=== PATIENT | female | born 1940 | race Caucasian/White ===

== ENCOUNTER → 2017-02-24 | Outpatient (CLI) | payer MEDICARE ==
[~2017-02-24] MED LIST: AMLO2.5T PO; ATEN25TA PO; ATOR20TA9 PO; CALC500T26 PO; CHOL500015 PO; KRIL1CAP23 PO; MAGN100T PO; MULT1TAB60 PO; RAMI10CA PO; RANI300T PO
== END | disposition home or self-care (01) ==
LOC: CFH 11:30
PROVIDERS: ATTEND Physical Medicine & Rehabilitation
DX: M51.36 Other intervertebral disc degeneration, lumbar region (principal); M47.897 Other spondylosis, lumbosacral region; M47.896 Other spondylosis, lumbar region; M41.86 Other forms of scoliosis, lumbar region
CPT/HCPCS: 72110; 72220

== ENCOUNTER → 2017-12-09 | Outpatient (CLI) | payer MEDICARE ==
[~2017-12-09] MED LIST changes: -CALC500T26 PO; +CALC500T93 PO
== END | disposition home or self-care (01) ==
LOC: CFH 11:19
PROVIDERS: ATTEND Nurse Practitioner Family
DX: Z13.820 Encounter for screening for osteoporosis (principal); Z78.0 Asymptomatic menopausal state
CPT/HCPCS: 77080

== ENCOUNTER 2018-12-12 17:26 | Emergency (ER) | payer MEDICARE ==
[~2018-12-12] VITALS: Ht 170.2 cm; Wt 81.1 kg
[~2018-12-12 17:26] MED LIST changes: -AMLO2.5T PO; +AMLO2.5T5 PO; +ATOR20TA37 PO; -ATOR20TA9 PO; -RAMI10CA PO; +RAMI10CA59 PO
--- NOTE | 2018-12-12 17:56 | NUR ---
PT TO ROOM FROM LOBBY
--- NOTE | 2018-12-12 18:11 | NUR ---
PT PLACED ON ISOLATION PRECAUTIONS, MD AT BEDSIDE
[2018-12-12 18:27] LABS: BASOPHILS # (AUTO) 0.01 x10^3/uL (0-0.1); BASOPHILS % (AUTO) 0 % (0-1); EOSINOPHILS # (AUTO) 0.07 x10^3/uL (0-0.4); EOSINOPHILS % (AUTO) 1 % (1-7); LYMPHOCYTES # (AUTO) 1.56 x10^3/uL (1-3.4); LYMPHOCYTES % (AUTO) 16 % (22-44); MD NO; MEAN CORPUSCULAR HEMOGLOBIN 32.2 pg (27.0-34.8); MEAN CORPUSCULAR HGB CONC 34.1 g/dL (32.4-35.8); MEAN CORPUSCULAR VOLUME 94.3 fL (80-100); MEAN PLATELET VOLUME 9.4 fL (7.4-10.4); MONOCYTES # (AUTO) 0.74 x10^3/uL (0.2-0.8); MONOCYTES % (AUTO) 8 % (2-9); NEUTROPHILS # (AUTO) 7.23 x10^3/uL (1.8-6.8); NEUTROPHILS % (AUTO) 75 % (42-75); PLATELET COUNT 197 x10^3/uL (130-400); RED BLOOD COUNT 4.73 x10^6/uL (3.82-5.3); RED CELL DISTRIBUTION WIDTH 13.5 % (9.6-15.2)
--- NOTE | 2018-12-12 18:29 | NUR ---
PT DOES NOT THINK SHE CAN PROVIDE STOOL SAMPLE, STATES SHE HASN'T BEEN ABLE TO EAT AND HAS HAD DIARRHEA FOR 3 DAYS
[2018-12-12 18:36] LABS: ALANINE AMINOTRANSFERASE 36 U/L (12-78); ALBUMIN 3.4 g/dL (3.4-5.0); ANION GAP 5 mmol/L (5-15); CALCIUM 8.7 mg/dL (8.5-10.1); CHLORIDE 106 mmol/L (98-107); CREATININE 0.78 mg/dL (0.55-1.02)
[2018-12-12 18:39] LABS: ALKALINE PHOSPHATASE 108 U/L (45-117); BILIRUBIN,TOTAL 1.9 mg/dL (0.2-1.0); TOTAL PROTEIN 7.4 g/dL (6.4-8.2)
--- NOTE | 2018-12-12 19:11 | NUR ---
ASSUMED CARE OF PATIENT.
--- NOTE | 2018-12-12 19:20 | NUR ---
PT WENT TO CT
--- NOTE | 2018-12-12 19:46 | NUR ---
PT RESTING IN ROOM. NO ACUTE DISTRESS NOTED. PT IS NOT ABLE TO GIVE A STOOL SAMPLE AT THIS TIME. WILL CONTINUE TO MONITOR.
[2018-12-12] MEDS ORDERED: CIPROFLOXACIN 500 MG TABLET ONE (20:15)
[2018-12-12] MEDS ORDERED: metroNIDAZOLE 500 MG TABLET ONE (20:15)
[2018-12-12 20:18] VITALS: BP 154/75
--- NOTE | 2018-12-12 20:25 | NUR ---
DR BARRIOS HAS UPDATED PATIENT PATIENT DISCHARGED
[2018-12-12] MEDS ORDERED: CIPROFLOXACIN 500 MG TABLET PO ONE (20:30)
[2018-12-12] MEDS ORDERED: metroNIDAZOLE 500 MG TABLET PO ONE (20:30)
== END 2018-12-12 20:27 | disposition home or self-care (01) ==
LOC: ED 20:07
DX: R10.9 Unspecified abdominal pain (principal); I25.10 Atherosclerotic heart disease of native coronary artery without angina pectoris; I10 Essential (primary) hypertension; E78.5 Hyperlipidemia, unspecified; Z90.49 Acquired absence of other specified parts of digestive tract
CPT/HCPCS: 36415; 74177; 80053; 83690; 85025; 99284

== ENCOUNTER 2018-12-22 17:57 | Inpatient (IN) | payer MEDICARE ==
[~2018-12-22] VITALS: Ht 170.2 cm; Wt 89.2 kg
[~2018-12-22 17:57] MED LIST changes: +CIPR500T87 PO; +DIAZ5TAB PO; +ESTR42.53 TD; +METR500T PO
[2018-12-22 19:21] LABS: ALBUMIN 3.4 g/dL (3.4-5.0); ANION GAP 4 mmol/L (5-15); CALCIUM 8.7 mg/dL (8.5-10.1); CHLORIDE 105 mmol/L (98-107)
[2018-12-22 19:24] LABS: ALANINE AMINOTRANSFERASE 48 U/L (12-78); ALKALINE PHOSPHATASE 98 U/L (45-117); BASOPHILS # (AUTO) 0.03 x10^3/uL (0-0.1); BASOPHILS % (AUTO) 0 % (0-1); BILIRUBIN,TOTAL 1.7 mg/dL (0.2-1.0); CREATININE 0.84 mg/dL (0.55-1.02); EOSINOPHILS # (AUTO) 0.01 x10^3/uL (0-0.4); EOSINOPHILS % (AUTO) 0 % (1-7); LYMPHOCYTES % (AUTO) 14 % (22-44); MD NO; MEAN PLATELET VOLUME 9.1 fL (7.4-10.4); MONOCYTES # (AUTO) 0.78 x10^3/uL (0.2-0.8); MONOCYTES % (AUTO) 6 % (2-9); NEUTROPHILS # (AUTO) 11.28 x10^3/uL (1.8-6.8); NEUTROPHILS % (AUTO) 81 % (42-75); PLATELET COUNT 229 x10^3/uL (130-400); RED BLOOD COUNT 4.91 x10^6/uL (3.82-5.3); RED CELL DISTRIBUTION WIDTH 13.4 % (9.6-15.2); TOTAL PROTEIN 7.6 g/dL (6.4-8.2)
--- NOTE | 2018-12-22 20:17 | NUR ---
FROM LOBBY TO ROOM
--- NOTE | 2018-12-22 20:20 | NUR ---
SEND BY PCP W/ REPORTED POSSIBLE FECAL IMPACTION. +NAUSEA
--- NOTE | 2018-12-22 22:31 | NUR ---
IV WAS INSERTED CT ABDOME WILL BE DONE
[2018-12-22] MEDS ORDERED: OMNIPAQUE 350 MG/ML, 100ML BOTTLE ONE (22:40)
[2018-12-23] MEDS ORDERED: SODIUM CHLORIDE 0.9% 1,000ML IVBOLUS ONE
[2018-12-23] MEDS ORDERED: PIPERACILLIN/TAZO/PMX 4.5GM 100 ML IV ONE
[2018-12-23] MEDS ORDERED: DIPHENHYDRAMINE 50 MG/ML, 1ML ONE (00:11)
--- NOTE | 2018-12-23 00:19 | NUR ---
given iv abx with benadryl iv for itching all patients belongings were taken by home
[2018-12-23] MEDS ORDERED: DIPHENHYDRAMINE 50 MG/ML, 1ML IVPush ONE ×2 (00:30)
[2018-12-23] MEDS ORDERED: MIDAZOLAM 1 MG/ML, 2ML ONE (00:42)
[2018-12-23] MEDS ORDERED: FENTANYL PF 250 MCG/5ML ONE (00:42)
[2018-12-23] MEDS ORDERED: PROPOFOL 10 MG/ML, 20ML ONE (00:51)
[2018-12-23] MEDS ORDERED: DEXAMETHASONE 4 MG/ML, 1ML ONE (00:51)
[2018-12-23] MEDS ORDERED: SUCCINYLCHOLINE 20 MG/ML, 10ML ONE (00:51)
[2018-12-23] MEDS ORDERED: ONDANSETRON 2MG/ML, 2ML ONE (00:51)
[2018-12-23] MEDS ORDERED: ROCURONIUM 10 MG/ML,10ML ONE (00:51)
[2018-12-23] MEDS ORDERED: CEFOTETAN 2 GM ONE (00:51)
[2018-12-23] MEDS ORDERED: SUGAMMADEX 200 MG/2 ML IVPush ONE (01:39)
[2018-12-23] MEDS ORDERED: ALBUTEROL SULFATE 2.5 MG/3 ML NPPB PRN (02:00)
[2018-12-23] MEDS ORDERED: LABETALOL 5MG/ML, 20ML IV PRN (02:00)
[2018-12-23] MEDS ORDERED: METOCLOPRAMIDE 5 MG/ML, 2ML IV PRN (02:00)
[2018-12-23] MEDS ORDERED: KETOROLAC 30 MG/1 ML IV PRN ×2 (02:00→05:30)
[2018-12-23] MEDS ORDERED: PROMETHAZINE 25 MG/ML, 1ML IV PRN (02:00)
[2018-12-23] MEDS ORDERED: ONDANSETRON 2MG/ML, 2ML IVPush PRN ×2 (02:00→03:00)
[2018-12-23] MEDS ORDERED: OXYcodone 5 MG/5 ML ORAL.SOL UDC PO PRN (02:00)
[2018-12-23] MEDS ORDERED: MEPERIDINE/PF 25MG/0.5ML IVPush PRN (02:00)
[2018-12-23] MEDS ORDERED: hydrALAzine 20 MG/ML, 1ML IV PRN (02:00)
[2018-12-23] MEDS: FENTANYL PF 100 MCG/2ML IV PRN ×2 (02:10→02:23)
[2018-12-23] MEDS ORDERED: DIPHENHYDRAMINE 50 MG/ML, 1ML IVPush PRN (02:30)
[2018-12-23] MEDS: HYDROmorphone 1 MG/ML, 1ML AMP IV PRN ×2 (02:35→02:46)
[2018-12-23] MEDS: SODIUM CHLORIDE 0.9% 1,000 ML IV SCH ×4 (02:49→17:49)
[2018-12-23] MEDS ORDERED: ONDANSETRON ODT 4 MG PO PRN (03:00)
[2018-12-23] MEDS ORDERED: DIAZEPAM 5 MG TABLET PO PRN (03:00)
[2018-12-23] MEDS ORDERED: hydrALAzine 20 MG/ML, 1ML IVPush PRN (03:00)
[2018-12-23] MEDS ORDERED: PROMETHAZINE 25 MG/ML, 1ML IM PRN (03:00)
[2018-12-23] MEDS ORDERED: morphine SULFATE 10 MG/ML, 1ML IVPush PRN (03:00)
[2018-12-23] MEDS ORDERED: LABETALOL 5MG/ML, 20ML IVPush PRN (03:00)
[2018-12-23] MEDS ORDERED: OXYcodone/APAP 5/325MG TABLET PO PRN (03:00)
[2018-12-23 03:22] VITALS: BP 98/56
[2018-12-23 03:30] LABS: HEMOGLOBIN A1C 5.7 % (4.2-6.3)
[2018-12-23 03:32] LABS: FREE T4 (FREE THYROXINE) 1.43 ng/dL (0.76-1.46); THYROID STIMULATING HORMONE 0.57 mIU/L (0.358-3.740)
[2018-12-23] MEDS ORDERED: POTASSIUM CHLORIDE 20 MEQ in D5%-0.45% NACL 1,000 ML IV SCH (05:30)
[2018-12-23] MEDS ORDERED: morphine SULFATE 10 MG/ML, 1ML IV PRN (05:30)
[2018-12-23 05:32] LABS: BASOPHILS % (AUTO) 0 % (0-1); EOSINOPHILS # (AUTO) 0.01 x10^3/uL (0-0.4); EOSINOPHILS % (AUTO) 0 % (1-7); LYMPHOCYTES # (AUTO) 0.67 x10^3/uL (1-3.4); LYMPHOCYTES % (AUTO) 4 % (22-44); MD NO; MEAN CORPUSCULAR HEMOGLOBIN 31.4 pg (27.0-34.8); MEAN CORPUSCULAR HGB CONC 33.3 g/dL (32.4-35.8); MEAN CORPUSCULAR VOLUME 94.2 fL (80-100); MEAN PLATELET VOLUME 9.2 fL (7.4-10.4); MONOCYTES % (AUTO) 4 % (2-9); NEUTROPHILS # (AUTO) 14.64 x10^3/uL (1.8-6.8); NEUTROPHILS % (AUTO) 92 % (42-75); PLATELET COUNT 202 x10^3/uL (130-400); RED CELL DISTRIBUTION WIDTH 13.7 % (9.6-15.2)
[2018-12-23 05:36] LABS: CHLORIDE 104 mmol/L (98-107)
[2018-12-23 05:41] LABS: ALANINE AMINOTRANSFERASE 194 U/L (12-78); ALBUMIN 2.9 g/dL (3.4-5.0); ALKALINE PHOSPHATASE 135 U/L (45-117); ANION GAP 7 mmol/L (5-15); BILIRUBIN,TOTAL 2.2 mg/dL (0.2-1.0); CALCIUM 8.1 mg/dL (8.5-10.1); CHOL/HDL RATIO 1.8; CHOLESTEROL, TOTAL 101 mg/dL (140-239); CREATININE 1.04 mg/dL (0.55-1.02); HDL CHOL % 54 % (28-40); HDL CHOLESTEROL (DIRECT) 55 mg/dL (40-60); LDL CHOLESTEROL,CALCULATED 33 mg/dL (54-169); LDL/HDL RATIO 0.6 (0.5-3.0); TOTAL PROTEIN 6.4 g/dL (6.4-8.2); TRIGLYCERIDES 64 mg/dL (50-200); VLDL CHOLESTEROL 13 mg/dL (0-25)
[2018-12-23] MEDS: DIPHENHYDRAMINE 50 MG/ML, 1ML IVPush PRN ×2 (06:28→17:47)
[2018-12-23] MEDS: ERTAPENEM 1 GM in SODIUM CHLORIDE 0.9% 50 ML IV SCH (06:28)
[2018-12-23 06:48] VITALS: BP 90/57
[2018-12-23] MEDS: MULTIVITAMIN 1 TABLET PO SCH (08:25)
[2018-12-23] MEDS: HEPARIN 5,000 UNITS/ML, 1ML SQ SCH ×2 (08:26→16:37)
[2018-12-23] MEDS: AMLODIPINE 2.5 MG TABLET PO SCH (08:26)
[2018-12-23] MEDS: LACTOBACILLUS CHEW TABLET PO SCH ×3 (08:26→21:04)
[2018-12-23] MEDS ORDERED: FAMOTIDINE 20 MG/2 ML IVPush SCH (09:00)
[2018-12-23] MEDS ORDERED: MAGNESIUM OXIDE 400 MG TABLET PO SCH (09:00)
[2018-12-23] MEDS ORDERED: RAMIPRIL 10 MG CAPSULE PO SCH (09:00)
[2018-12-23 13:47] VITALS: BP 124/67
[2018-12-23 18:40] VITALS: BP 131/69
[2018-12-23] MEDS: ATORVASTATIN 20 MG TABLET PO SCH (21:04)
[2018-12-23] MEDS: RAMIPRIL 10 MG CAPSULE PO SCH (21:34)
[2018-12-24] MEDS: HEPARIN 5,000 UNITS/ML, 1ML SQ SCH ×3 (00:05→17:00)
[2018-12-24] MEDS: SODIUM CHLORIDE 0.9% 1,000 ML IV SCH ×3 (00:09→17:00)
[2018-12-24 05:54] LABS: ALBUMIN 2.4 g/dL (3.4-5.0); ANION GAP 6 mmol/L (5-15); CALCIUM 7.8 mg/dL (8.5-10.1); CHLORIDE 110 mmol/L (98-107)
[2018-12-24 05:59] LABS: ALANINE AMINOTRANSFERASE 238 U/L (12-78); ALKALINE PHOSPHATASE 135 U/L (45-117); BILIRUBIN,TOTAL 0.7 mg/dL (0.2-1.0); CREATININE 0.72 mg/dL (0.55-1.02); TOTAL PROTEIN 5.1 g/dL (6.4-8.2)
[2018-12-24] MEDS: ERTAPENEM 1 GM in SODIUM CHLORIDE 0.9% 50 ML IV SCH (06:22)
[2018-12-24 06:42] VITALS: BP 113/53
[2018-12-24] MEDS: AMLODIPINE 2.5 MG TABLET PO SCH (08:49)
[2018-12-24] MEDS: MULTIVITAMIN 1 TABLET PO SCH (08:49)
[2018-12-24] MEDS: LACTOBACILLUS CHEW TABLET PO SCH ×3 (08:49→20:46)
[2018-12-24 12:56] VITALS: BP 104/67
[2018-12-24 18:44] VITALS: BP 152/74
[2018-12-24] MEDS: ATORVASTATIN 20 MG TABLET PO SCH (20:45)
[2018-12-24] MEDS: RAMIPRIL 10 MG CAPSULE PO SCH (20:46)
[2018-12-24] MEDS ORDERED: RAMIPRIL 10 MG CAPSULE PO SCH (21:00)
[2018-12-25] MEDS: HEPARIN 5,000 UNITS/ML, 1ML SQ SCH ×3 (00:05→15:40)
[2018-12-25] MEDS: MUPIROCIN OINT 2%, 22GM TP SCH ×3 (00:05→17:31)
[2018-12-25 05:23] LABS: BASOPHILS # (AUTO) 0.02 x10^3/uL (0-0.1); BASOPHILS % (AUTO) 0 % (0-1); EOSINOPHILS # (AUTO) 0.23 x10^3/uL (0-0.4); EOSINOPHILS % (AUTO) 4 % (1-7); LYMPHOCYTES # (AUTO) 1.93 x10^3/uL (1-3.4); LYMPHOCYTES % (AUTO) 35 % (22-44); MD NO; MEAN CORPUSCULAR HEMOGLOBIN 31.8 pg (27.0-34.8); MEAN CORPUSCULAR HGB CONC 33.4 g/dL (32.4-35.8); MEAN CORPUSCULAR VOLUME 95.1 fL (80-100); MEAN PLATELET VOLUME 9.8 fL (7.4-10.4); MONOCYTES # (AUTO) 0.38 x10^3/uL (0.2-0.8); MONOCYTES % (AUTO) 7 % (2-9); NEUTROPHILS # (AUTO) 2.97 x10^3/uL (1.8-6.8); NEUTROPHILS % (AUTO) 54 % (42-75); PLATELET COUNT 138 x10^3/uL (130-400); RED BLOOD COUNT 3.69 x10^6/uL (3.82-5.3); RED CELL DISTRIBUTION WIDTH 13.6 % (9.6-15.2)
[2018-12-25 05:30] LABS: CHLORIDE 111 mmol/L (98-107)
[2018-12-25 05:39] LABS: ALANINE AMINOTRANSFERASE 155 U/L (12-78); ALBUMIN 2.3 g/dL (3.4-5.0); ALKALINE PHOSPHATASE 117 U/L (45-117); ANION GAP 5 mmol/L (5-15); BILIRUBIN,TOTAL 0.5 mg/dL (0.2-1.0); CALCIUM 7.6 mg/dL (8.5-10.1); CREATININE 0.49 mg/dL (0.55-1.02); TOTAL PROTEIN 5.3 g/dL (6.4-8.2)
[2018-12-25] MEDS: ERTAPENEM 1 GM in SODIUM CHLORIDE 0.9% 50 ML IV SCH (06:50)
[2018-12-25] MEDS: AMLODIPINE 2.5 MG TABLET PO SCH (08:15)
[2018-12-25] MEDS: MULTIVITAMIN 1 TABLET PO SCH (08:15)
[2018-12-25] MEDS: LACTOBACILLUS CHEW TABLET PO SCH ×3 (08:15→20:15)
[2018-12-25 08:20] VITALS: BP 147/82
[2018-12-25] MEDS: SODIUM CHLORIDE 0.9% 1,000 ML IV SCH (10:36)
[2018-12-25 15:26] VITALS: BP 145/83
[2018-12-25 18:50] VITALS: BP 149/85
[2018-12-25 20:13] VITALS: BP 128/68
[2018-12-25] MEDS: ATORVASTATIN 20 MG TABLET PO SCH (20:15)
[2018-12-25] MEDS: RAMIPRIL 10 MG CAPSULE PO SCH (20:15)
[2018-12-26] MEDS: HEPARIN 5,000 UNITS/ML, 1ML SQ SCH ×3 (00:54→15:47)
[2018-12-26] MEDS ORDERED: OMNIPAQUE 350 MG/ML, 100ML BOTTLE ONE (02:27)
[2018-12-26] MEDS: SODIUM CHLORIDE 0.9% 1,000 ML IV SCH (03:05)
[2018-12-26 05:12] LABS: HCT (SEDRATE) 36.5 % (34.6-47.8)
[2018-12-26 05:20] LABS: ALBUMIN 2.6 g/dL (3.4-5.0); ANION GAP 5 mmol/L (5-15); CALCIUM 8.1 mg/dL (8.5-10.1); CHLORIDE 108 mmol/L (98-107)
[2018-12-26 05:23] LABS: ALANINE AMINOTRANSFERASE 125 U/L (12-78); ALKALINE PHOSPHATASE 121 U/L (45-117); BILIRUBIN,TOTAL 0.7 mg/dL (0.2-1.0); CREATININE 0.47 mg/dL (0.55-1.02); TOTAL PROTEIN 5.5 g/dL (6.4-8.2)
[2018-12-26] MEDS: MUPIROCIN OINT 2%, 22GM TP SCH (05:54)
[2018-12-26] MEDS: ERTAPENEM 1 GM in SODIUM CHLORIDE 0.9% 50 ML IV SCH (06:45)
[2018-12-26 07:45] VITALS: BP 125/67
[2018-12-26] MEDS ORDERED: metroNIDAZOLE 500 MG TABLET PO SCH (08:00)
[2018-12-26] MEDS: MULTIVITAMIN 1 TABLET PO SCH (08:45)
[2018-12-26] MEDS: LACTOBACILLUS CHEW TABLET PO SCH ×2 (08:45→15:47)
[2018-12-26] MEDS: AMLODIPINE 2.5 MG TABLET PO SCH (08:46)
[2018-12-26] MEDS ORDERED: LEVOFLOXACIN 750 MG TABLET PO SCH (09:00)
[2018-12-26] MEDS ORDERED: AMOX1TAB12 PO (12:28)
[2018-12-26] MEDS ORDERED: POTA20TA6 PO (12:28)
[2018-12-26] MEDS ORDERED: AMOXICILLIN/CLAV 875-125MG TABLET PO SCH ×2 (16:00→21:00)
[2018-12-27] MEDS ORDERED: POTASSIUM CHLORIDE 20 MEQ TAB.ER.PRT PO SCH (08:00)
== END 2018-12-26 17:00 | disposition home or self-care (01) | DRG 329 ==
LOC: ED 22:48 → EDIP 12-23 00:12 → 4NOR 12-23 03:08
PROVIDERS: ADMIT Internal Medicine; ATTEND Internal Medicine
PROC: 0WUF0JZ Supplement Abdominal Wall with Synthetic Substitute, Open Approach (ICD-10-PCS; 2018-12-23)
PROC: 0DB80ZZ Excision of Small Intestine, Open Approach (ICD-10-PCS; principal; 2018-12-23 00:15)
DX: K57.00 Diverticulitis of small intestine with perforation and abscess without bleeding (principal); K65.0 Generalized (acute) peritonitis; K86.2 Cyst of pancreas; K56.7 Ileus, unspecified; E78.5 Hyperlipidemia, unspecified; I10 Essential (primary) hypertension; I95.9 Hypotension, unspecified; K21.9 Gastro-esophageal reflux disease without esophagitis; K56.41 Fecal impaction; Z90.49 Acquired absence of other specified parts of digestive tract; Z90.710 Acquired absence of both cervix and uterus; Z79.899 Other long term (current) drug therapy; Z84.1 Family history of disorders of kidney and ureter; Z82.49 Family history of ischemic heart disease and other diseases of the circulatory system; K71.10 Toxic liver disease with hepatic necrosis, without coma
CPT/HCPCS: 36415; 74177; 80053; 80061; 83036; 83690; 83735; 84439; 84443; 85025; 85651; 87040; 88307; 96374; 99285; G0378; J1100; J1170; J1335; J1644; J2250; J2405; J2543; J2704; J3010; J3480; Q9967; J0330; J1200; J3490; J7030

== ENCOUNTER 2019-06-10 08:51 | Outpatient (CLI) | payer MEDICARE | END 2019-06-10 23:59 | disposition home or self-care (01) | LOC: CFH 08:51 | PROVIDERS: ATTEND Genetic Counselor, MS | DX: I67.82 Cerebral ischemia (principal) | CPT/HCPCS: 70553; A9585 ==

== ENCOUNTER 2019-06-21 08:50 | Emergency (ER) | payer MEDICARE ==
[~2019-06-21] VITALS: Ht 170.2 cm; Wt 77.5 kg
[2019-06-21 12:28] VITALS: BP 141/67
== END 2019-06-21 12:30 | disposition home or self-care (01) ==
LOC: ED 09:56
DX: R42 Dizziness and giddiness (principal); I10 Essential (primary) hypertension; E78.00 Pure hypercholesterolemia, unspecified; K21.9 Gastro-esophageal reflux disease without esophagitis; E78.5 Hyperlipidemia, unspecified; I25.10 Atherosclerotic heart disease of native coronary artery without angina pectoris; Z90.89 Acquired absence of other organs; Z90.49 Acquired absence of other specified parts of digestive tract
CPT/HCPCS: 36415; 71045; 80048; 82040; 84439; 84443; 84484; 85025; 93005; 99284

== ENCOUNTER → 2019-09-21 | Outpatient (CLI) | payer MEDICARE ==
[~2019-09-21] MED LIST changes: +AMOX1TAB12 PO; +ASPI-515 PO; +CHOL10002 PO; +OMEG1600 PO; +OMNIPAQUE 350 MG/ML, 100ML BOTTLE ONE; +POTA20TA6 PO; +PRIM50TA34 PO; +SUCR1TAB PO; +[UNRECOGNIZED DRUG - CODE] PO; +[UNRECOGNIZED DRUG - OTHER]
== END | disposition home or self-care (01) ==
LOC: CFH 12:40
PROVIDERS: ATTEND Internal Medicine Geriatric Medicine
DX: K86.2 Cyst of pancreas (principal); E27.9 Disorder of adrenal gland, unspecified; K63.89 Other specified diseases of intestine; M85.88 Other specified disorders of bone density and structure, other site; M47.896 Other spondylosis, lumbar region; K44.9 Diaphragmatic hernia without obstruction or gangrene; E78.5 Hyperlipidemia, unspecified; I10 Essential (primary) hypertension; F41.9 Anxiety disorder, unspecified; Z90.89 Acquired absence of other organs; Z90.49 Acquired absence of other specified parts of digestive tract; Z88.8 Allergy status to other drugs, medicaments and biological substances; Z91.013 Allergy to seafood; Z79.899 Other long term (current) drug therapy
CPT/HCPCS: 74170; Q9967

== ENCOUNTER → 2019-12-22 | Outpatient (CLI) | payer MEDICARE ==
[~2019-12-22] MED LIST changes: -OMNIPAQUE 350 MG/ML, 100ML BOTTLE ONE
== END | disposition home or self-care (01) ==
LOC: CVU 10:26
PROVIDERS: ATTEND Internal Medicine Cardiovascular Disease
DX: I65.23 Occlusion and stenosis of bilateral carotid arteries (principal); I63.9 Cerebral infarction, unspecified; I10 Essential (primary) hypertension; E78.5 Hyperlipidemia, unspecified
CPT/HCPCS: 93880

== ENCOUNTER 2020-04-26 02:56 | Emergency (ER) | payer MEDICARE ==
[~2020-04-26] VITALS: Ht 170.2 cm; Wt 78.0 kg
[~2020-04-26 02:56] MED LIST changes: +MULT-449 PO; -MULT1TAB60 PO
--- NOTE | 2020-04-26 03:00 | NUR ---
Pt presents by ambulance with reports of itchiness starting in hands prior to bed. Pt reports itching along with hives progressed up her arms and onto torso. Recieved 25 mg benadryl iv en route with some relief. Pt reports allergy to shellfish, but states she only ate salmon for dinner. Pt resting comfortably in bed at this time, warm blanket provided and call johnson within reach. arrived at bedside
[2020-04-26] MEDS ORDERED: methylPREDNISolone SOD SUCC 125 MG/2 ML ONE (03:21)
[2020-04-26] MEDS ORDERED: FAMOTIDINE 20 MG/2 ML ONE (03:21)
[2020-04-26] MEDS ORDERED: methylPREDNISolone SOD SUCC 125 MG/2 ML IVPush ONE (03:30)
[2020-04-26] MEDS ORDERED: FAMOTIDINE 20 MG/2 ML IVPush ONE (03:30)
[2020-04-26 04:36] VITALS: BP 119/72
[2020-04-26] MEDS ORDERED: Magnesium Glycinate (11:17)
[2020-04-26] MEDS ORDERED: Diazepam (11:17)
[2020-04-26] MEDS ORDERED: CALC650T7 PO (11:17)
[2020-04-26] MEDS ORDERED: vitamin D3 PO (11:17)
[2020-04-26] MEDS ORDERED: PRIMADOPHILUS (11:19)
[2020-04-26] MEDS ORDERED: amoxicillin (11:19)
[2020-04-26] MEDS ORDERED: ASPI-496 PO (11:19)
== END 2020-04-26 04:40 | disposition home or self-care (01) ==
LOC: ED 04:32
DX: J30.2 Other seasonal allergic rhinitis (principal); R21 Rash and other nonspecific skin eruption; T78.1XXA Other adverse food reactions, not elsewhere classified, initial encounter; R06.02 Shortness of breath; R05 Cough; K21.9 Gastro-esophageal reflux disease without esophagitis; I10 Essential (primary) hypertension; I25.10 Atherosclerotic heart disease of native coronary artery without angina pectoris; E78.5 Hyperlipidemia, unspecified; I51.7 Cardiomegaly; X58.XXXA Exposure to other specified factors, initial encounter
CPT/HCPCS: 71045; 93005; 96374; 96375; 99284; J2930; J3490

== ENCOUNTER 2020-04-26 10:18 | Emergency (ER) | payer MEDICARE ==
[~2020-04-26] VITALS: Ht 170.2 cm; Wt 78.8 kg
[2020-04-26] MEDS ORDERED: DEXAMETHASONE 4 MG TABLET PO ONE (11:00)
[2020-04-26] MEDS ORDERED: FAMOTIDINE 20 MG TABLET PO ONE (11:00)
[2020-04-26] MEDS ORDERED: DEXAMETHASONE 4 MG TABLET ONE (11:04)
[2020-04-26] MEDS ORDERED: FAMOTIDINE 20 MG TABLET ONE (11:04)
--- NOTE | 2020-04-26 11:09 | NUR ---
Medications provided per EMAR. NADN. Pt connected to NIBP cuff and continous pulse ox monitor. No needs expressed. Call light within reach. Bedrail up x 1 for safety measures.
[2020-04-26] MEDS ORDERED: Diazepam (11:17)
[2020-04-26] MEDS ORDERED: vitamin D3 PO (11:17)
[2020-04-26] MEDS ORDERED: Magnesium Glycinate (11:17)
[2020-04-26] MEDS ORDERED: CALC650T7 PO (11:17)
[2020-04-26] MEDS ORDERED: PRIMADOPHILUS (11:19)
[2020-04-26] MEDS ORDERED: amoxicillin (11:19)
[2020-04-26] MEDS ORDERED: ASPI-496 PO (11:19)
[2020-04-26 11:46] VITALS: BP 130/67
--- NOTE | 2020-04-26 11:46 | NUR ---
Patient and caregiver given discharge instructions and they have confirmed that they understand the instructions. Patient ambulatory with steady gait. Pt left with Rx, D/C paperwork, and all personal belongings. NADN. No needs expressed.
== END 2020-04-26 11:48 | disposition home or self-care (01) ==
LOC: ED 10:56
DX: T78.40XA Allergy, unspecified, initial encounter (principal); R21 Rash and other nonspecific skin eruption; K21.9 Gastro-esophageal reflux disease without esophagitis; I25.10 Atherosclerotic heart disease of native coronary artery without angina pectoris; X58.XXXA Exposure to other specified factors, initial encounter
CPT/HCPCS: 99284; Q0177

== ENCOUNTER 2020-08-18 16:26 | Emergency (ER) | payer MEDICARE ==
[~2020-08-18] VITALS: Ht 170.2 cm; Wt 77.3 kg
[~2020-08-18 16:26] MED LIST changes: +ASPI-496 PO; +CALC650T7 PO; +Diazepam; +Magnesium Glycinate; +PRIMADOPHILUS; +amoxicillin; +vitamin D3 PO
[2020-08-18] MEDS ORDERED: NEOSPORIN OINT. PKT 1 PACKET ONE (17:24)
[2020-08-18] MEDS ORDERED: MORPHINE SULFATE 4 MG/ML, 1ML IVPush PRN (17:30)
[2020-08-18] MEDS ORDERED: SODIUM CHLORIDE FLUSH 10ML SYR IVF ONE (17:30)
--- NOTE | 2020-08-18 17:34 | NUR ---
PIV STARTED, LABS DRAWN.
[2020-08-18] MEDS ORDERED: MORPHINE SULFATE 4 MG/ML, 1ML ONE (17:42)
--- NOTE | 2020-08-18 17:50 | NUR ---
PT WHEELED TO BR BY SPOUSE, ALEXANDRA.
[2020-08-18 17:53] LABS: ALANINE AMINOTRANSFERASE 30 U/L (12-78); ANION GAP 3 mmol/L (5-15); BASOPHILS % (AUTO) 0 % (0-1); CALCIUM 9.6 mg/dL (8.5-10.1); CHLORIDE 107 mmol/L (98-107); EOSINOPHILS % (AUTO) 1 % (1-7); LYMPHOCYTES % (AUTO) 22 % (22-44); MEAN CORPUSCULAR HEMOGLOBIN 30.5 pg (27.0-34.8); MEAN CORPUSCULAR HGB CONC 32.6 g/dL (32.4-35.8); MONOCYTES % (AUTO) 7 % (2-9); NEUTROPHILS % (AUTO) 69 % (42-75); PLATELET COUNT 192 x10^3/uL (130-400); RED BLOOD COUNT 4.61 x10^6/uL (3.82-5.3)
[2020-08-18 17:56] LABS: ALKALINE PHOSPHATASE 135 U/L (45-117); BILIRUBIN,TOTAL 0.7 mg/dL (0.2-1.0); TOTAL PROTEIN 7.8 g/dL (6.4-8.2)
--- NOTE | 2020-08-18 17:56 | NUR ---
PT TO RAD.
[2020-08-18 17:57] LABS: MD NO
--- NOTE | 2020-08-18 18:13 | NUR ---
PT DECLINING PAIN MEDS AT THIS TIME. PT REPORTS 2/10 WHEN USING [facility].
--- NOTE | 2020-08-18 18:23 | NUR ---
PT RESTING ON GURNEY W/ CALL LIGHT IN REACH AND SIDE RAILS UPX2. RESP EVEN AND UNLABORED, NADN. AWAITING XR.
--- NOTE | 2020-08-18 18:46 | NUR ---
BEDSIDE REPORT FROM KATLIN RN, PT CARE TRANSFERRED AT THIS TIME. PT RESTING ON GURNEY, APPEARS COMFORTABLE, NAD, NO CHANGE IN CONDITION AT THIS TIME. WCTM. WAITING FOR RAD RESULTS
[2020-08-18 18:51] VITALS: BP 146/61
--- NOTE | 2020-08-18 19:55 | NUR ---
PT TO AND FROM RESTROOM VIA WHEELCHAIR, NAD, NO CHANGE IN CONDITION, TRANSFERRED SMOOTHLY WITH STAND BY ASSIST. WAITING FOR RAD READ. WCTM. AT BS
--- NOTE | 2020-08-18 20:48 | NUR ---
Patient/spouse given discharge instructions and they have confirmed that they understand the instructions. Patient dc'd with a wheelchair or comfort, provided incentive spirometer, NAD, denies additional needs or questions at this time.
[2020-08-18] MEDS ORDERED: OMNIPAQUE 350 MG/ML, 100ML BOTTLE ONE (23:26)
== END 2020-08-18 20:49 | disposition home or self-care (01) ==
LOC: ED 17:11
DX: S22.41XA Multiple fractures of ribs, right side, initial encounter for closed fracture (principal); S80.212A Abrasion, left knee, initial encounter; S80.211A Abrasion, right knee, initial encounter; I10 Essential (primary) hypertension; K21.9 Gastro-esophageal reflux disease without esophagitis; I25.10 Atherosclerotic heart disease of native coronary artery without angina pectoris; E78.5 Hyperlipidemia, unspecified; Z90.89 Acquired absence of other organs; Z90.49 Acquired absence of other specified parts of digestive tract; W01.0XXA Fall on same level from slipping, tripping and stumbling without subsequent striking against object, initial encounter; Y93.01 Activity, walking, marching and hiking; Y92.512 Supermarket, store or market as the place of occurrence of the external cause; Y99.8 Other external cause status
CPT/HCPCS: 36415; 73564; 74177; 80053; 85025; 99285; Q9967

== ENCOUNTER → 2020-10-17 | Outpatient (CLI) | payer MEDICARE ==
[~2020-10-17] MED LIST changes: +OMNIPAQUE 350 MG/ML, 100ML BOTTLE ONE
== END | disposition home or self-care (01) ==
LOC: CFH 08:55
PROVIDERS: ATTEND Internal Medicine Geriatric Medicine
DX: K43.9 Ventral hernia without obstruction or gangrene (principal); M81.0 Age-related osteoporosis without current pathological fracture; K86.2 Cyst of pancreas; N95.9 Unspecified menopausal and perimenopausal disorder
CPT/HCPCS: 74170; 77080; 82565; Q9967

== ENCOUNTER 2020-10-21 12:03 | Emergency (ER) | payer MEDICARE ==
[~2020-10-21] VITALS: Ht 170.2 cm; Wt 78.7 kg
[~2020-10-21 12:03] MED LIST changes: -OMNIPAQUE 350 MG/ML, 100ML BOTTLE ONE
--- NOTE | 2020-10-21 12:38 | NUR ---
PT C/O DIARRHEA AFTER CT WITH CONTRAST ON FRIDAY. PT STATES USUALLY 3 EPISODES DIARRHEA PER DAY, DENIES VOMITING. PT HAS BEEN DRINKING PEDIALITE. CONNECTED TO MONITORING. CALL LIGHT IN REACH. SPOUSE AT BEDSIDE.
--- NOTE | 2020-10-21 13:02 | NUR ---
PT AMBUALTED TO RESTROOM WITH STEADY GAIT. PT PROVIDED URINE SAMPLE, NO STOOL AT THIS TIME. PIV PLACED, LABS DRAWN. CONNECTED TO MONITORING. SPOUSE AT BEDSIDE. MD AT BEDSIDE FOR ASSESSMENT.
[2020-10-21] MEDS ORDERED: SODIUM CHLORIDE FLUSH 10ML SYR IVF ONE (13:30)
[2020-10-21] MEDS ORDERED: METOCLOPRAMIDE 5 MG/ML, 2ML IVPush ONE (13:30)
[2020-10-21] MEDS ORDERED: SODIUM CHLORIDE 0.9% 1,000ML IVBOLUS ONE (13:30)
[2020-10-21] MEDS ORDERED: METOCLOPRAMIDE 5 MG/ML, 2ML ONE (13:38)
[2020-10-21 13:47] LABS: BASOPHILS % (AUTO) 1 % (0-1); EOSINOPHILS % (AUTO) 2 % (1-7); LYMPHOCYTES % (AUTO) 27 % (22-44); MEAN CORPUSCULAR HEMOGLOBIN 31.3 pg (27.0-34.8); MEAN CORPUSCULAR HGB CONC 33.3 g/dL (32.4-35.8); MEAN PLATELET VOLUME 9.4 fL (7.4-10.4); MONOCYTES % (AUTO) 10 % (2-9); NEUTROPHILS % (AUTO) 60 % (42-75); PLATELET COUNT 197 x10^3/uL (130-400); RED BLOOD COUNT 4.63 x10^6/uL (3.82-5.3); RED CELL DISTRIBUTION WIDTH 13.6 % (9.6-15.2)
[2020-10-21 13:48] LABS: MD NO
[2020-10-21 13:56] LABS: ALANINE AMINOTRANSFERASE 25 U/L (12-78); ALBUMIN 3.8 g/dL (3.4-5.0); ANION GAP 3 mmol/L (5-15); CALCIUM 9.2 mg/dL (8.5-10.1); CHLORIDE 109 mmol/L (98-107)
[2020-10-21 13:59] LABS: ALKALINE PHOSPHATASE 125 U/L (45-117); BILIRUBIN,TOTAL 1.4 mg/dL (0.2-1.0); CREATININE 0.77 mg/dL (0.55-1.02); TOTAL PROTEIN 7.6 g/dL (6.4-8.2)
[2020-10-21 14:00] LABS: MICROSCOPIC NOT IND
[2020-10-21 14:05] VITALS: BP 150/72
--- NOTE | 2020-10-21 14:06 | NUR ---
MEDS ADMIN PER JAN. PT RESTING COMFORTABLY ON [place]. ALEXANDRA.
--- NOTE | 2020-10-21 14:53 | NUR ---
ALL RESULTS ARE BACK AT THIS TIME. CHART UP FOR RECHECK.
--- NOTE | 2020-10-21 15:50 | NUR ---
AFTER PROVIDER RE-EVAL GIVEN DISCHARGE INSTRUCTIONS. AMBULATED TO DISCHARGE WINDOW STEADY GAIT.
== END 2020-10-21 15:52 | disposition home or self-care (01) ==
LOC: ED 12:29
DX: R19.7 Diarrhea, unspecified (principal); R10.31 Right lower quadrant pain; R11.0 Nausea; I10 Essential (primary) hypertension; E78.5 Hyperlipidemia, unspecified; I25.10 Atherosclerotic heart disease of native coronary artery without angina pectoris; K21.9 Gastro-esophageal reflux disease without esophagitis; Z90.49 Acquired absence of other specified parts of digestive tract; Z90.89 Acquired absence of other organs
CPT/HCPCS: 36415; 80053; 81003; 83605; 83690; 85025; 96360; 96372; 99283; J2765; J7030; 96361; 96374

== ENCOUNTER → 2020-11-16 | Outpatient (CLI) | payer MEDICARE | END | disposition home or self-care (01) | LOC: CVU 15:03 | PROVIDERS: ATTEND Physician Assistant Medical | DX: Z01.810 Encounter for preprocedural cardiovascular examination (principal); I08.0 Rheumatic disorders of both mitral and aortic valves; I11.9 Hypertensive heart disease without heart failure; I44.7 Left bundle-branch block, unspecified | CPT/HCPCS: 93306 ==

== ENCOUNTER → 2020-11-17 | Outpatient (CLI) | payer MEDICARE ==
[~2020-11-17] MED LIST changes: +REGADENOSON 0.4 MG/5 ML SYRINGE ONE
== END | disposition home or self-care (01) ==
LOC: CFH 08:47
PROVIDERS: ATTEND Internal Medicine Cardiovascular Disease
DX: Z01.810 Encounter for preprocedural cardiovascular examination (principal); I44.7 Left bundle-branch block, unspecified
CPT/HCPCS: 78452; 93017; A9502; J2785

== ENCOUNTER 2021-02-02 13:25 | Outpatient (CLI) | payer MEDICARE ==
[~2021-02-02 13:25] MED LIST changes: -ASPI-515 PO; +ASPI-963 PO; -REGADENOSON 0.4 MG/5 ML SYRINGE ONE
== END 2021-02-02 23:59 | disposition home or self-care (01) ==
LOC: CFH 13:25
PROVIDERS: ATTEND Internal Medicine Cardiovascular Disease
DX: Z02.9 Encounter for administrative examinations, unspecified (principal)